=== PATIENT | female | born 1990 ===

== ENCOUNTER → 2022-03-13 | Outpatient (REF) | payer OTHER | LOC: M LAB REF 13:52 | PROVIDERS: ATTEND Physician Assistant | DX: J06.9 Acute upper respiratory infection, unspecified (principal) ==

== ENCOUNTER 2022-06-28 10:22 | Inpatient (IN) | payer OTHER ==
[~2022-06-28] VITALS: Ht 167.6 cm; Wt 105.7 kg
[2022-06-28] VITALS (10 sets, daily range): BP systolic 112–166; BP diastolic 58–92
[2022-06-28] MEDS ORDERED: ZYRTTAB8 PO (10:44)
[2022-06-28] MEDS ORDERED: PRENTAB9 PO (10:44)
[2022-06-28] MEDS ORDERED: ASPI81CH33 PO (10:44)
[2022-06-28] MEDS ORDERED: HOME MED LIST COMPLETE! XX SCH (10:45)
[2022-06-28] MEDS ORDERED: LACTATED RINGER'S 1000 ML IV STA (11:41)
[2022-06-28] MEDS ORDERED: METHYLERGONOVINE MALEATE 0.2 MG/ML VIAL (J2210) IM PRN (11:45)
[2022-06-28] MEDS ORDERED: OXYTOCIN INJ 10 UNITS/ML VIAL (J2590) IV PRN (11:45)
[2022-06-28] MEDS ORDERED: LR 1,000 ML IV SCH ×2 (11:45→13:55)
[2022-06-28] MEDS ORDERED: OXYTOCIN INJ 10 UNITS/ML VIAL (J2590) IM PRN (11:45)
[2022-06-28] MEDS ORDERED: OXYTOCIN DRIP 30 UNITS in IV 1 EA IV PRN ×6 (11:45)
[2022-06-28] MEDS ORDERED: TRANEXAMIC ACID INJection 1,000 MG in NS 100 ML IV PRN (11:45)
[2022-06-28] MEDS ORDERED: LIDOCAINE 1% MDV 20ML VIAL INFIL PRN (11:45)
[2022-06-28] MEDS ORDERED: CARBOPROST TROMETHAMINE 250 MCG/ML AMP IM PRN (11:45)
[2022-06-28 12:56] LABS: BASO # 0.1 10^3/uL (0.0-0.2); BASO % 0.6 % (0.0-1.0); EOS # 0.1 10^3/uL (0.0-0.5); EOS % 1.3 % (0.0-3.0); HEMATOCRIT 36.8 % (36.0-47.0); HEMOGLOBIN 12.5 g/dl (12.0-15.5); LYMPH # 1.6 10^3/uL (1.5-5.0); LYMPH % 18.6 % (24.0-44.0); MEAN CORPUSCULAR HEMOGLOBIN 28.8 pg (27.0-33.0); MEAN CORPUSCULAR VOLUME 84.8 fl (80.0-96.0); MONO # 0.7 10^3/uL (0.0-0.8); MONO % 8.4 % (2.0-8.0); NEUTROPHILS # 5.9 10^3/uL (1.5-8.5); NEUTROPHILS % 68.9 % (36.0-66.0); PLATELET COUNT, AUTOMATED 222 10^3/uL (150-450); RED BLOOD COUNT 4.34 10^6/uL (4.00-5.40); WHITE BLOOD COUNT 8.6 10^3/uL (4.0-10.0)
[2022-06-28 13:49] LABS: APPEARANCE, URINE MANUAL CLEAR (CLEAR); COLOR, URINE MANUAL YELLOW (YELLOW)
[2022-06-28 13:51] LABS: GLUCOSE, URINE (UA) MANUAL 1+(100 MG/DL) mg/dL (NEGATIVE); PROTEIN, URINE MANUAL TRACE mg/dL (NEGATIVE)
[2022-06-28 13:52] LABS: BILIRUBIN, URINE MANUAL NEGATIVE (NEGATIVE); BLOOD URINE MANUAL POSITIVE (NEGATIVE); KETONE, URINE MANUAL NEGATIVE (NEGATIVE); LEUKOCYTE ESTERASE, URINE MAN NEGATIVE (NEGATIVE); NITRITE, URINE MANUAL NEGATIVE (NEGATIVE); UROBILINOGEN, URINE MANUAL NORMAL (NORMAL)
[2022-06-28] MEDS ORDERED: OXYTOCIN DRIP 30 UNITS in IV 1 EA IV SCH ×5 (13:55→20:20)
[2022-06-28 13:57] LABS: RBC, URINE 30-40 /hpf (0-3); SQUAMOUS EPITHELIAL CELL URINE MOD AMOUNT /hpf (SMALL AMT)
[2022-06-28 13:59] LABS: BACTERIA, URINE SMALL AMOUNT; HYALINE CAST, URINE NONE SEEN /lpf (0-1); MUCUS, URINE SMALL AMOUNT (NEGATIVE)
[2022-06-28 14:06] LABS: ALT/SGPT 21 U/L (12-78); BILIRUBIN,TOTAL 0.3 MG/DL (0.2-1.0); CREATININE FOR GFR 0.57 MG/DL (0.55-1.30); GLOMERULAR FILTRATION RATE > 60.0 (>60); LDH LACTATE DEHYDROGENASE 264 U/L (84-246); URIC ACID 4.8 MG/DL (2.6-6.0)
[2022-06-28 14:37] LABS: TOTAL PROTEIN,RANDOM URINE 39.1 MG/DL (0.0-12.0)
[2022-06-28] MEDS ORDERED: PROMETHAZINE 25MG/ML 1ML VIAL IV ONE (16:10)
[2022-06-28] MEDS ORDERED: BUTORPHANOL 2 MG/ML INJ (J0595) IV ONE (16:10)
[2022-06-28] MEDS ORDERED: LR 500 ML IV PRN (18:10)
[2022-06-28] MEDS ORDERED: diphenhydrAMINE 50MG/ML VIAL (J1200) IV PRN (18:10)
[2022-06-28] MEDS ORDERED: FENTANYL/ROPIVACAINE/NACL BAG 100 ML EPIDURAL SCH (18:10)
[2022-06-28] MEDS ORDERED: NALOXONE INJ 0.4MG/1ML VIAL (J2310 PER 1MG) IV PRN (18:10)
[2022-06-28] MEDS ORDERED: ePHEDrine SULFATE 25 MG/5 ML(5MG/ML) SYRINGE IVP PRN (18:10)
[2022-06-28] MEDS ORDERED: EPIDURAL/PCA KEYS XX PRN (18:10)
[2022-06-28] MEDS ORDERED: ONDANSETRON 4MG 2ML VIAL IV PRN (18:10)
[2022-06-28] MEDS ORDERED: ANUSOL HC CREAM 30GM TOP PRN (20:20)
[2022-06-28] MEDS ORDERED: DIBUCAINE 1% OINTMENT 30GM TOP PRN (20:20)
[2022-06-28] MEDS ORDERED: ACETAMINOPHEN TAB 650MG DOSE (2X325MG) PO PRN (20:20)
[2022-06-28] MEDS ORDERED: METHYLERGONOVINE MALEATE 0.2 MG TAB PO PRN (20:20)
[2022-06-28] MEDS ORDERED: RHOGAM 300 MCG (1500 IU) INJ (J2790) IM SCH (20:20)
[2022-06-28] MEDS ORDERED: IBUPROFEN 600MG TAB PO PRN (20:20)
[2022-06-28] MEDS ORDERED: LIDOCAINE 1% MDV 20ML VIAL SC ONE (20:40)
[2022-06-28] MEDS: DOCUSATE SODIUM 100MG CAPSULE PO SCH (21:00)
[2022-06-28] MEDS: IBUPROFEN 800 MG TAB PO PRN (21:30)
[2022-06-28] MEDS: ACETAMINOPHEN 500 MG TAB PO PRN (21:30)
[2022-06-28] MEDS ORDERED: PERCOCET 5MG/325MG TAB PO ONE (22:55)
[2022-06-29 02:05] VITALS: BP 115/64
[2022-06-29 05:46] VITALS: BP 111/49
[2022-06-29 06:31] LABS: HEMATOCRIT 30.2 % (36.0-47.0); MEAN CORPUSCULAR HEMOGLOBIN 28.6 pg (27.0-33.0); MEAN CORPUSCULAR HGB CONC 33.1 g/dl (32.0-36.5); MEAN CORPUSCULAR VOLUME 86.3 fl (80.0-96.0); PLATELET COUNT, AUTOMATED 177 10^3/uL (150-450); WHITE BLOOD COUNT 12.9 10^3/uL (4.0-10.0)
[2022-06-29] MEDS: DOCUSATE SODIUM 100MG CAPSULE PO SCH ×2 (08:33→21:34)
[2022-06-29] MEDS: PRENATAL VITAMINS CHEWABLE TABLET PO SCH (08:33)
[2022-06-29] MEDS: IBUPROFEN 800 MG TAB PO PRN ×2 (08:40→21:36)
[2022-06-29] MEDS: ACETAMINOPHEN 500 MG TAB PO PRN (15:27)
[2022-06-29 18:00] VITALS: BP 117/57
[2022-06-30 06:00] VITALS: BP 114/61
[2022-06-30] MEDS: ACETAMINOPHEN 500 MG TAB PO PRN (06:31)
[2022-06-30] MEDS: DOCUSATE SODIUM 100MG CAPSULE PO SCH (08:53)
[2022-06-30] MEDS: IBUPROFEN 800 MG TAB PO PRN (08:53)
[2022-06-30] MEDS: PRENATAL VITAMINS CHEWABLE TABLET PO SCH (08:53)
[2022-06-30] MEDS ORDERED: INFLUENZA QUADRIVALENT PF VACCINE 0.5ML SYRINGE IM.IMMUN ONE (09:00)
[2022-06-30] MEDS ORDERED: MEASLES,MUMPS,RUBELLA VACCINE INJ (MMR-II) (90707) SC.IMMUN ONE (09:00)
== END 2022-06-30 12:07 | disposition home or self-care (01) | DRG 807 ==
LOC: M LDO 10:22 → M LDI 12:17 → M OBS 22:48
PROVIDERS: ADMIT Advanced Practice Midwife; ATTEND Obstetrics & Gynecology
PROC: 10E0XZZ Delivery of Products of Conception, External Approach (ICD-10-PCS; principal; 2022-06-28)
PROC: 0KQM0ZZ Repair Perineum Muscle, Open Approach (ICD-10-PCS; 2022-06-28)
DX: O24.420 Gestational diabetes mellitus in childbirth, diet controlled (principal); Z37.0 Single live birth; Z3A.39 39 weeks gestation of pregnancy; Z79.82 Long term (current) use of aspirin; O76 Abnormality in fetal heart rate and rhythm complicating labor and delivery; O70.1 Second degree perineal laceration during delivery